=== PATIENT | male | born 1955 | race Caucasian/White ===

== ENCOUNTER 2018-11-02 12:59 | Emergency (ER) | payer MEDICARE, MEDICAID ==
[~2018-11-02] VITALS: Ht 172.7 cm; Wt 81.6 kg
[~2018-11-02 12:59] MED LIST: ATOR20TA PO; BROM2.5T3 PO; BUME2TAB3 PO; CINA30TA2 PO; CLOP75TA28 PO; DOCU-94 PO; METO25TA5 PO; OMEP20CA74 PO
[2018-11-02] MEDS ORDERED: EPINEPHrine HCL 1 MG/10 ML SYRG IV ONE (13:01)
[2018-11-02] MEDS ORDERED: SODIUM BICARBONATE 8.4% INJ 50ML SYRINGE IV ONE (13:01)
[2018-11-02] MEDS ORDERED: MIDAZOLAM DRIP 50 mg/50mL 50 ML IV ONE (13:19)
[2018-11-02] MEDS ORDERED: PROPOFOL 100 ML IV ONE (13:27)
[2018-11-02 13:28] LABS: Basophils # (auto) 0.1 uL; Basophils % (auto) 0.6 % (0.0-2.0); Eosinophils # (auto) 0.1 uL; Hematocrit 35.2 % (41.0-53.0); Hemoglobin 11.5 g/dL (13.5-17.5); Mean Corpuscular Hgb Conc. 32.7 g/dL (32.0-36.0); Monocytes % (auto) 5.3 % (0.0-12.0); Neutrophils # (auto) 5.8 uL; Nucleated Red Blood Cells % 0.1 %
[2018-11-02 13:31] LABS: Lymphocytes # (auto) 5.6 uL; Lymphocytes % (auto) 45.7 % (10.0-50.0); Mean Corpuscular Hemoglobin 33.9 pg (28.0-32.0); Mean Corpuscular Volume 103.6 fL (80.0-100.0); Monocytes # (auto) 0.6 uL; Neutrophils % (auto) 47.4 % (37.0-80.0); Platelet Count (auto) 318 10^3/uL (140-450); Red Cell Distribution Width 14.9 % (11.8-14.3); White Blood Cell 12.3 10^3/uL (4.4-10.8)
[2018-11-02] MEDS: MIDAZOLAM DRIP 50 mg/50mL 50 ML IV SCH ×3 (13:42→18:56)
[2018-11-02 13:43] LABS: Albumin 3.6 g/dL (3.4-5.0); Calcium 8.3 mg/dL (8.5-10.1); Magnesium 2.5 mg/dL (1.6-2.6)
[2018-11-02] MEDS: PROPOFOL 100 ML IV SCH ×3 (13:43→18:56)
[2018-11-02] MEDS ORDERED: VANCOMYCIN 1GM/250ML 250 ML IV ONE (13:45)
[2018-11-02] MEDS ORDERED: PIPERACILLIN-TAZOB 3.375GM 100 ML IV ONE (13:45)
[2018-11-02 13:51] LABS: BUN/Creatinine Ratio 2.4; Bilirubin, Total 0.5 mg/dL (0.2-1.0); Total Protein 7.4 g/dL (6.4-8.2)
[2018-11-02 14:02] LABS: Potassium 2.8 mmol/L (3.5-5.1)
[2018-11-02 14:23] LABS: INR 1.05 (0.9-1.15); Prothrombin Time 11.2 sec (9.27-12.13)
[2018-11-02 14:29] LABS: Lactic Acid w/Reflex 7.5 mmol/L (0.4-2.0)
[2018-11-02] MEDS ORDERED: SODIUM CHLORIDE 0.9% 1,000 ML IV ONE (15:15)
[2018-11-02] MEDS ORDERED: POTASSIUM CHL 20MEQ/100ML 100 ML IV ONE (15:15)
[2018-11-02] MEDS ORDERED: MORPHINE SULFATE 4 MG/ML SYR/VIAL ONE (15:54)
[2018-11-02 16:02] LABS: Alcohol, Urine < 3.0 mg/dL (0-5); Amphetamine Screen, Urine NEGATIVE (NEGATIVE); Barbiturate Scree,Urine NEGATIVE (NEGATIVE); Benzodiazephine Screen, Urine NEGATIVE (NEGATIVE); Cannabinoid Screen, Urine NEGATIVE (NEGATIVE); Cocaine Screen, Urine NEGATIVE (NEGATIVE); Opiate Scree,Urine NEGATIVE (NEGATIVE); Phencyclidine Screen, Urine NEGATIVE (NEGATIVE)
[2018-11-02 19:05] VITALS: BP 151/76
== END 2018-11-02 15:17 | disposition short-term general hospital (02) ==
LOC: EDBD 12:59 → ER 13:00
DX: I46.9 Cardiac arrest, cause unspecified (principal); E11.22 Type 2 diabetes mellitus with diabetic chronic kidney disease; I13.2 Hypertensive heart and chronic kidney disease with heart failure and with stage 5 chronic kidney disease, or end stage renal disease; I50.9 Heart failure, unspecified; N18.6 End stage renal disease
CPT/HCPCS: 31500; 36415; 36556; 36600; 51702; 70450; 71045; 71250; 74176; 80053; 80307; 82805; 83605; 83735; 84484; 85025; 85610; 87040; 87070; 87205; 92950; 93005; 96365; 96366; 96367; 99291; J0171; J2250; J2270; J2543; J2704; J3370; J3480; J7030; 94002

== ENCOUNTER 2019-12-27 11:11 | Inpatient (IN) | payer MEDICARE, MEDICAID ==
[~2019-12-27] VITALS: Ht 165.1 cm; Wt 47.3 kg
[~2019-12-27 11:11] MED LIST changes: -BUME2TAB3 PO; +BUME2TAB5 PO
[2019-12-27] MEDS ORDERED: AZITHROMYCIN 500MG/ 250ML 250 ML IV ONE (12:00)
[2019-12-27] MEDS ORDERED: hydrOXYchloroQUINE SULFATE 200 MG TAB PO ONE (12:00)
[2019-12-27] MEDS ORDERED: ERGOCALCIFEROL 50,000 UNIT(1.25MG) CAP PO SCH (12:00)
[2019-12-27] MEDS ORDERED: ASCORBIC ACID 500 MG TAB PO ONE (12:00)
[2019-12-27] MEDS ORDERED: ZINC SULFATE 220mg CAP or TAB PO ONE (12:00)
[2019-12-27 14:44] LABS: Basophils # (auto) 0 10 ^3/uL (0-0.2); Basophils % (auto) 0.5 % (0.0-2.0); Eosinophils # (auto) 0 10 ^3/uL (0-0.8); Eosinophils % (auto) 0.3 % (0.0-7.0); Hemoglobin 9.2 g/dL (13.5-17.5); Lymphocytes # (auto) 0.4 10 ^3/uL (0.4-5.4); Mean Corpuscular Hemoglobin 33.2 pg (28.0-32.0); Mean Corpuscular Hgb Conc. 32.7 g/dL (32.0-36.0); Mean Corpuscular Volume 101.4 fL (80.0-100.0); Monocytes # (auto) 0.4 10 ^3/uL (0-1.3); Monocytes % (auto) 11.6 % (0.0-12.0); Neutrophils # (auto) 2.3 10 ^3/uL (1.6-8.6); Neutrophils % (auto) 75.6 % (37.0-80.0); Nucleated Red Blood Cells % 0.1 %; Platelet Count (auto) 186 10^3/uL (140-450); Red Blood Cells 2.76 10^6/uL (4.5-5.90); Red Cell Distribution Width 18.5 % (11.8-14.3)
[2019-12-27 15:04] LABS: Albumin 2.5 g/dL (3.4-5.0); BUN/Creatinine Ratio 3.2; Calcium 7.8 mg/dL (8.5-10.1); Magnesium 1.7 mg/dL (1.6-2.6); Potassium 3.4 mmol/L (3.5-5.1)
[2019-12-27 15:09] LABS: Bilirubin, Total 2.5 mg/dL (0.2-1.0); Total Protein 6.2 g/dL (6.4-8.2)
[2019-12-27] MEDS ORDERED: TEMAZEPAM 15 MG CAP PO PRN (15:30)
[2019-12-27] MEDS ORDERED: LACTULOSE 20Gm/30ML SOLN PO PRN ×2 (15:30)
[2019-12-27] MEDS ORDERED: NITROGLYCERIN 0.4 MG SL TAB SL PRN (15:30)
[2019-12-27] MEDS ORDERED: DEXTROSE (50%) 50ML SYRG IV PRN (15:30)
[2019-12-27] MEDS ORDERED: ALBUTEROL SULF 2.5 MG/0.5ML(0.5%) NEB SOLN NEB PRN (15:30)
[2019-12-27] MEDS ORDERED: ACETAMINOPHEN 500 MG TAB PO PRN (15:30)
[2019-12-27] MEDS ORDERED: MORPHINE SULF INJ 2 MG/ML SYRINGE 1ML IV PRN ×2 (15:30)
[2019-12-27] MEDS ORDERED: PROMETHAZINE HCL 25 MG/ML 1ML IV PRN (15:30)
[2019-12-27] MEDS: BROMOCRIPTINE MESYLATE 2.5 MG PO SCH ×2 (15:45→22:44)
--- NOTE | 2019-12-27 16:50 | NUR ---
Tele Patient arrived to the floor. No signs of distress at this time. Will continue to monitor.
[2019-12-27] MEDS: InsuLIN REG 1unit/0.01ml Soln (100units/ml) SC SCH ×2 (17:00→22:44)
[2019-12-27] MEDS: ACCU-CHEK COMFORT CURVE STRIP VI SCH ×2 (17:21→22:48)
[2019-12-27 17:23] VITALS: BP 151/72
[2019-12-27 17:50] VITALS: BP 151/72
[2019-12-27 17:56] VITALS: BP 151/72
[2019-12-27] MEDS: BUMETANIDE 1 MG TAB PO SCH (19:02)
--- NOTE | 2019-12-27 19:50 | NUR ---
Opening Shift Note Assumed care of patient, awake and alert. No S/S of distress/SOB or pain. Instructed on POC and to call for assist PRN, will continue to monitor for changes Q1hr and PRN. Fall precautions taken. Patient on 2L NC.
[2019-12-27 20:00] VITALS: BP 150/70
[2019-12-27] MEDS ORDERED: PATIENTS OWN MEDICATION (Bumetanide 1 TAB) PO SCH (22:00)
[2019-12-27] MEDS: METOPROLOL TARTRATE 25 MG TAB PO SCH (22:00)
[2019-12-27] MEDS ORDERED: CARVEDILOL 3.125 MG TAB PO SCH (22:00)
[2019-12-27] MEDS: ALBUTEROL SULF HFA 90MCG INH 200DOSE IN SCH (22:20)
--- NOTE | 2019-12-27 22:22 | NUR ---
MDI ADMINISTERED ORDERED WITH SPACER ATTACHMENT. SPO2 95% ON 2L NC, HR 55. WILL CONTINUE WITH NEXT SCHEDULED TX.
[2019-12-27] MEDS: DOCUSATE SOD 100 MG CAP PO SCH (22:44)
[2019-12-27] MEDS: SODIUM CHLOR 0.9% PF (SALINE LOCK) 10ML VIAL/SYR IV SCH (22:44)
[2019-12-27] MEDS: ATORVASTATIN 20 MG TAB PO SCH (22:47)
--- NOTE | 2019-12-27 23:40 | NUR ---
Blood Work Third troponin Lab sent
[2019-12-28] VITALS (8 sets, daily range): BP systolic 149–160; BP diastolic 69–78
--- NOTE | 2019-12-28 00:20 | NUR ---
Cardio Consult Hospitalist made aware of patient's high troponins x2. Cardio consult ordered.
--- NOTE | 2019-12-28 04:46 | NUR ---
High Blood Pressure Patient's BP-160/78, HR-55. No PRN blood pressure medication. Sohail phillips hospitalist.
[2019-12-28] MEDS ORDERED: cloNIDine HCL 0.1 MG TAB PO ONE (05:30)
--- NOTE | 2019-12-28 06:40 | NUR ---
EKG & BLOOD WORK DONE
[2019-12-28] MEDS: ALBUTEROL SULF HFA 90MCG INH 200DOSE IN SCH ×3 (06:50→22:13)
--- NOTE | 2019-12-28 06:50 | NUR ---
BREATHING TX ADMINISTERED VIA MDI WITH SPACER, PT TOLERATED WELL, NO ADVERSE REACTIONS NOTED. EDUCATED PT ON INHALER ADMINISTRATION WITH SPACER, PT VERBALIZED AND DEMONSTRATED UNDERSTANDING. HR 54, RR 15, SPO2 99% ON 2LPM NASAL CANNULA. NO SOB NOTED. WILL CONTINUE TO MONITOR PT.
[2019-12-28] MEDS: InsuLIN REG 1unit/0.01ml Soln (100units/ml) SC SCH ×2 (07:00→11:30)
--- NOTE | 2019-12-28 07:20 | NUR ---
Closing Note Care endorse to dayshift nurse.
[2019-12-28] MEDS: SODIUM CHLOR 0.9% PF (SALINE LOCK) 10ML VIAL/SYR IV SCH ×3 (07:28→22:14)
[2019-12-28] MEDS: BUMETANIDE 1 MG TAB PO SCH ×2 (07:28→18:16)
[2019-12-28] MEDS: ACCU-CHEK COMFORT CURVE STRIP VI SCH ×2 (07:29→11:48)
[2019-12-28] MEDS ORDERED: MAGNESIUM SULFATE 1GM/100ML 100 ML IV ONE (08:15)
[2019-12-28] MEDS ORDERED: POTASSIUM CHLORIDE 40 MEQ, LIDOCAINE 1% (LOCAL ANESTH.) 4 ML in SODIUM CHL 0.9% 100 ML IV ONE (08:15)
[2019-12-28] MEDS: BROMOCRIPTINE MESYLATE 2.5 MG PO SCH ×2 (08:59→22:00)
[2019-12-28] MEDS ORDERED: POTASSIUM CHL 20 Meq TABLET PO ONE (09:15)
[2019-12-28] MEDS ORDERED: cloNIDine HCL 0.1 MG TAB PO PRN (09:15)
--- NOTE | 2019-12-28 09:15 | NUR ---
Tania Mckee rounding PRODUCTION TECHNOLOGIST inform patient heart rate goes el and is currently 51 and drops to the 40's . PRODUCTION TECHNOLOGIST aware that Coreg and Metoprol was held due to low heart rate.
[2019-12-28] MEDS: METOPROLOL TARTRATE 25 MG TAB PO SCH (09:20)
[2019-12-28] MEDS: DOCUSATE SOD 100 MG CAP PO SCH ×3 (09:21→22:14)
[2019-12-28] MEDS: ASPirin 81 mg TAB PO SCH (09:22)
[2019-12-28] MEDS: CLOPIDOGREL BISULFATE 75 MG TAB PO SCH (09:22)
[2019-12-28] MEDS: CINACALCET HYDROCHLORIDE 30 MG TAB PO SCH ×2 (09:23→09:50)
[2019-12-28] MEDS: ENOXAPARIN SOD 30 MG/0.3 ML SYRINGE SC SCH (09:24)
[2019-12-28] MEDS ORDERED: hydrALAZINE HCL 20 MG/ML VL IV PRN (09:30)
--- NOTE | 2019-12-28 09:30 | NUR ---
Patient refuse Sensipar patient stated his movie theater usher told him not to take it anymore. patient refused Colace stated he has diarrhea. patent refused nitropatch stated he only uses if he has chest pain denies chest pain at this time.
[2019-12-28] MEDS: NITROGLYCERIN 0.2MG/HR TOPICAL PATCH TD SCH (09:48)
[2019-12-28] MEDS: ISOSORBIDE MONONITRATE ER 60 MG TAB PO SCH (09:48)
[2019-12-28] MEDS ORDERED: CARVEDILOL 3.125 MG TAB PO SCH (10:00)
[2019-12-28] MEDS ORDERED: AMIO200T33 PO (11:03)
[2019-12-28] MEDS ORDERED: CARV3.1240 PO (11:20)
[2019-12-28] MEDS ORDERED: ISOS60TA24 PO (11:20)
[2019-12-28] MEDS ORDERED: LISI-646 PO (11:21)
[2019-12-28] MEDS ORDERED: ATOR40TA52 PO (11:21)
--- NOTE | 2019-12-28 14:28 | NUR ---
BREATHING TX ADMINISTERED VIA MDI WITH SPACER, PT TOLERATED WELL, NO ADVERSE REACTIONS NOTED. EDUCATED PT ON INHALER ADMINISTRATION WITH SPACER, PT VERBALIZED AND DEMONSTRATED UNDERSTANDING. HR 58, RR 16, SPO2 97% ON 2LPM NASAL CANNULA. NO SOB NOTED. WILL CONTINUE TO MONITOR PT.
[2019-12-28] MEDS ORDERED: ASCORBIC ACID 500 MG TAB PO ONE (14:45)
--- NOTE | 2019-12-28 19:05 | NUR ---
Patient stated he gagged from his dinner and had a small bout of vomit on the bed. Patient request medication for nausea. Patient was medicated (see Emr).
--- NOTE | 2019-12-28 22:13 | NUR ---
Respiratory note: INHALER GIVEN PER RN ENRIQUETA.
[2019-12-28] MEDS: ATORVASTATIN 20 MG TAB PO SCH (22:14)
[2019-12-28] MEDS: ASCORBIC ACID 500 MG TAB PO SCH (22:15)
[2019-12-29] MEDS: traMADol HCL 50 MG TAB PO PRN ×2 (01:39→05:48)
--- NOTE | 2019-12-29 01:39 | NUR ---
pain pt complaining of sore throat and body aches. 01/19. tramadol given. will continue to monitor.
[2019-12-29] MEDS: SODIUM CHLOR 0.9% PF (SALINE LOCK) 10ML VIAL/SYR IV SCH ×2 (05:20→14:12)
[2019-12-29] MEDS: ALBUTEROL SULF HFA 90MCG INH 200DOSE IN SCH ×2 (05:20→14:43)
[2019-12-29] MEDS: BUMETANIDE 1 MG TAB PO SCH (05:20)
--- NOTE | 2019-12-29 05:22 | NUR ---
pain pt complaining of pain. 12/20. pt stated he will wait until he can have a tramadol in 20 mins. also gave him a juice.
[2019-12-29 05:26] LABS: Basophils # (auto) 0 10 ^3/uL (0-0.2); Basophils % (auto) 0.5 % (0.0-2.0); Eosinophils # (auto) 0.1 10 ^3/uL (0-0.8); Eosinophils % (auto) 2.2 % (0.0-7.0); Hematocrit 27.2 % (41.0-53.0); Hemoglobin 8.9 g/dL (13.5-17.5); Lymphocytes # (auto) 0.6 10 ^3/uL (0.4-5.4); Lymphocytes % (auto) 13.2 % (10.0-50.0); Mean Corpuscular Hemoglobin 32.7 pg (28.0-32.0); Mean Corpuscular Hgb Conc. 32.7 g/dL (32.0-36.0); Monocytes # (auto) 0.6 10 ^3/uL (0-1.3); Monocytes % (auto) 12.1 % (0.0-12.0); Neutrophils # (auto) 3.3 10 ^3/uL (1.6-8.6); Nucleated Red Blood Cells % 0.2 %; Platelet Count (auto) 188 10^3/uL (140-450); Red Blood Cells 2.72 10^6/uL (4.5-5.90); Red Cell Distribution Width 17.7 % (11.8-14.3); White Blood Cell 4.6 10^3/uL (4.4-10.8)
[2019-12-29 05:50] LABS: Albumin 2.2 g/dL (3.4-5.0); BUN/Creatinine Ratio 3.6; Calcium 8.1 mg/dL (8.5-10.1); Potassium 4.3 mmol/L (3.5-5.1)
[2019-12-29 05:53] LABS: Bilirubin, Total 1.5 mg/dL (0.2-1.0); Total Protein 6.1 g/dL (6.4-8.2)
--- NOTE | 2019-12-29 05:55 | NUR ---
critical lab called pt creatinine is 10.8. pt receiving dialysis this am. endorsed to day shift.
[2019-12-29 05:57] VITALS: BP 152/76
--- NOTE | 2019-12-29 06:05 | NUR ---
Respiratory note: MDI GIVEN BY RN. PT ON ROOM AIR. HR 72, RR 18 AND SP02 96%.
--- NOTE | 2019-12-29 07:01 | NUR ---
dialysis at bedside
--- NOTE | 2019-12-29 08:00 | NUR ---
OPENING SHIFT NOTE: PATIENT RESTING IN BED LOW FOWLERS. ALERT AND ORIENTED X4. DENIES ANY SOB OR DISTRESS AT THIS TIME. PATIENT CURRENTLY RECEIVING DIALYSIS AT THIS TIME. PATIENT ON 1L NASAL CANNULA WITH OXYGEN SATURATIONS AT 100%. PATIENT UPDATED ON POC. BED IN LOWEST LOCKED POSITION WITH CALL LIGHT WITHIN REACH.
[2019-12-29 09:00] VITALS: BP 126/71
[2019-12-29] MEDS: NITROGLYCERIN 0.2MG/HR TOPICAL PATCH TD SCH (10:00)
[2019-12-29] MEDS ORDERED: AZITHROMYCIN 500MG/D5WorNS 250ml IV SCH (10:00)
[2019-12-29] MEDS: DOCUSATE SOD 100 MG CAP PO SCH (10:00)
[2019-12-29] MEDS ORDERED: ZINC SULFATE 220mg CAP or TAB PO SCH (10:00)
[2019-12-29] MEDS: ISOSORBIDE MONONITRATE ER 60 MG TAB PO SCH (10:00)
[2019-12-29] MEDS: BROMOCRIPTINE MESYLATE 2.5 MG PO SCH (10:00)
--- NOTE | 2019-12-29 10:55 | NUR ---
INFORMED Rosalinda DUKES OF INCREASED QTC INTERVAL. STATED TO HOLD PLAQUENIL.
--- NOTE | 2019-12-29 10:55 | NUR ---
Rosalinda DUKES AT BEDSIDE.
[2019-12-29] MEDS: ASPirin 81 mg TAB PO SCH (11:16)
[2019-12-29] MEDS: ENOXAPARIN SOD 30 MG/0.3 ML SYRINGE SC SCH (11:17)
[2019-12-29] MEDS: ASCORBIC ACID 500 MG TAB PO SCH (11:17)
[2019-12-29] MEDS: CLOPIDOGREL BISULFATE 75 MG TAB PO SCH (11:17)
--- NOTE | 2019-12-29 12:45 | NUR ---
SPOKE TO Rosalinda SNOW REGARDING PATIENT IN SINUS OSCAR ASYMPTOMATIC. INFORMED PATIENT HAS A PACEMAKER IN PLACE, BUT NO PACER SPIKES NOTED IN EKG. STATED TO HAVE PATIENT FOLLOW UP WITH HIM OUTPATIENT FOR PACER FOLLOW-UP OUTPATIENT.
[2019-12-29 13:00] VITALS: BP 136/96
--- NOTE | 2019-12-29 15:15 | NUR ---
Discharge instructions given as ordered. Encourage to follow up with PMD as instructed. instructed patient to follow up with wire winding machine tender for pacemaker follow-up. Also instructed to self-isolate for 2 weeks. All questions and concerns addressed. Patient verbalized understanding. Medication reconciliation form completed and copy given to patient. Home medications held in Pharmacy returned to patient. MIDLINE removed with catheter intact, pressure dressing applied. Telemetry unit returned to ICU. Patient taken to vehicle via wheelchair with all personal belongings, accompanied by staff and family member. No distress noted at time of departure.
== END 2019-12-29 15:00 | disposition home or self-care (01) | DRG 177 ==
LOC: ER 11:11 → TELE 11:12 → TELE-EAST 16:41
PROVIDERS: ADMIT Internal Medicine; ATTEND Internal Medicine
PROC: 5A1D70Z Performance of Urinary Filtration, Intermittent, Less than 6 Hours Per Day (ICD-10-PCS; principal; 2019-12-29)
DX: U07.1 COVID-19 (principal); N18.6 End stage renal disease; I50.43 Acute on chronic combined systolic (congestive) and diastolic (congestive) heart failure; I21.A1 Myocardial infarction type 2; R00.1 Bradycardia, unspecified; K76.1 Chronic passive congestion of liver; E11.22 Type 2 diabetes mellitus with diabetic chronic kidney disease; I25.10 Atherosclerotic heart disease of native coronary artery without angina pectoris; D49.7 Neoplasm of unspecified behavior of endocrine glands and other parts of nervous system; E87.6 Hypokalemia; E83.42 Hypomagnesemia; Z95.0 Presence of cardiac pacemaker; Z98.61 Coronary angioplasty status; I25.2 Old myocardial infarction; Z82.49 Family history of ischemic heart disease and other diseases of the circulatory system; Z79.899 Other long term (current) drug therapy; Z79.4 Long term (current) use of insulin; Z95.1 Presence of aortocoronary bypass graft
CPT/HCPCS: 36415; 71045; 76705; 80053; 82550; 82728; 82962; 83036; 83605; 83615; 83735; 83880; 84484; 85025; 85379; 86141; 87040; 87070; 87081; 87804; 87880; 90935; 93005; 94640; 96365; G0378; J2001